=== PATIENT | male | born 1990 | race Caucasian/White ===

== ENCOUNTER 2017-02-02 10:14 | Emergency (ER) | payer OTHER ==
[2017-02-02 13:00] LABS: HEMOGLOBIN 14.4 gm/dl (14.0-17.5); RED BLOOD COUNT 4.83 M/UL (4.20-5.50); WHITE BLOOD COUNT 8.9 K/UL (4.5-11.0)
[2017-02-02 13:49] LABS: BUN/CREATININE RATIO 18 (0-10)
== END 2017-02-02 15:25 | disposition short-term general hospital (02) ==
LOC: ER1 10:14
PROVIDERS: Physician Assistant
DX: S39.012A Strain of muscle, fascia and tendon of lower back, initial encounter (principal); S29.012A Strain of muscle and tendon of back wall of thorax, initial encounter; I10 Essential (primary) hypertension; F31.9 Bipolar disorder, unspecified; F17.200 Nicotine dependence, unspecified, uncomplicated; V43.52XA Car driver injured in collision with other type car in traffic accident, initial encounter
CPT/HCPCS: 36415; 71260; 72128; 72131; 80053; 81001; 82150; 83690; 85025; 99285; J7050; Q9962